=== PATIENT | female | born 1995 | race Caucasian/White ===

== ENCOUNTER 2017-01-10 12:08 | Emergency (ER) | payer OTHER ==
[~2017-01-10] VITALS: Ht 167.6 cm; Wt 52.2 kg
[2017-01-10 13:40] VITALS: BP 111/67
== END 2017-01-10 13:55 | disposition home or self-care (01) ==
LOC: ER 12:08
DX: S93.502A Unspecified sprain of left great toe, initial encounter (principal); S90.32XA Contusion of left foot, initial encounter; X58.XXXA Exposure to other specified factors, initial encounter; Y93.02 Activity, running; Y92.89 Other specified places as the place of occurrence of the external cause; Y99.8 Other external cause status